=== PATIENT | female | born 1960 | race Caucasian/White ===

== ENCOUNTER 2016-09-26 07:13 | Day surgery (SDC) | payer BC ==
[2016-09-24 13:39] VITALS: BMI 33.9
--- NOTE | 2016-09-26 10:04 | CP.SDSHP ---
Same Day Surgery H & P - History Proposed Procedure: colonoscopy Pre-Op Diagnosis: screening - Previous Medical/Surgical History Cardiac: Hypertension, ASHD/CAD Endocrine/Metabolic: Diabetes - Allergies Allergies: Allergies No Known Allergies Allergy (Verified 09/24/16 13:39) - Physical Exam General Appearance: NAD Vital Signs: Vital Signs 09/26/16 08:29 Temperature 98.7 F Pulse Rate 63 Respiratory 19 Rate Blood Pressure 140/72 O2 Sat by Pulse 98 Oximetry Mental Status: Alert & Oriented x3 Neuro: WNL Heart: WNL Lungs: WNL GI: WNL - {Optional Preform as Required} Abdomen: WNL - Impression Pt. Evaluated Today:Candidate for Anesthesia & Procedure: Yes - Date & Time Date: 09/26/16 Time: 10:03 Short Stay Discharge - Short Stay Discharge Admitting Diagnosis/Reason for Visit: SCREENING Disposition: HOME/ ROUTINE
[2016-09-26] MEDS ORDERED: Propofol 10 mg/ml Inj (20 ML) ONE (10:28)
[2016-09-26] MEDS ORDERED: Lactated Ringer's 500 ML IV SCH (10:45)
[2016-09-26 11:13] VITALS: O2SAT 100
[2016-09-26 13:55] VITALS: BP 139/71; PULSE 61; RESP 18; TEMP 97.9
== END 2016-09-26 12:00 | disposition home or self-care (01) ==
LOC: C.ENDO 07:13
PROVIDERS: ATTEND Internal Medicine Gastroenterology
DX: D12.3 Benign neoplasm of transverse colon (principal); K64.8 Other hemorrhoids
CPT/HCPCS: 45388; 82948; 88305; J2704; J7120